=== PATIENT | female | born 1990 | race African-American/Black ===

== ENCOUNTER 2021-01-25 05:05 | Emergency (ER) | payer SELFPAY ==
[~2021-01-25] VITALS: Ht 167.6 cm; Wt 55.8 kg
--- NOTE | 2021-01-25 05:49 | NUR ---
pt refused covid test
[2021-01-25 06:26] VITALS: BP 119/82
--- NOTE | 2021-01-25 06:26 | NUR ---
Patient discharged to home in stable condition. her sister is driving her home. Written and verbal after care instructions given. Patient verbalizes understanding of instructions. Stressed follow up or return to ER for worsening s/s.
[2021-01-25] MEDS ORDERED: HYDROCODONE/APAP 5-325MG TABLET PO ONE (06:30)
[2021-01-25] MEDS ORDERED: HYDROCODONE/APAP 5-325MG TABLET ONE (06:32)
== END 2021-01-25 06:29 | disposition home or self-care (01) ==
LOC: ER 05:14
DX: R05.9 Cough, unspecified (principal)
CPT/HCPCS: 71045; A4663